=== PATIENT | female | born 1995 | race Caucasian/White ===

== ENCOUNTER 2024-10-01 00:26 | Emergency (ER) | payer SELFPAY ==
[2024-10-01 00:41] VITALS: BP 127/84; PULSE 69; TEMP 36.6; O2SAT 100; BMI 24.8
--- NOTE | 2024-10-01 01:13 | ED.DENTAL1 ---
HPI - Dental/Oral General Chief complaint: Dental/Oral Stated complaint: TOOTH PAIN Time Seen by Provider: 10/01/24 01:00 Source: patient Mode of arrival: walk-in Limitations: no limitations History of Present Illness HPI Narrative: This 28-year-old female presents for evaluation of left lower posterior dental pain where she has a decaying tooth. She states that tooth has been bothering her for the past several days. She states she is going to call for a dental appointment on Monday. She goes to the [facility] where they have a dentist. She is not having any difficulty breathing or swallowing. She has not had any fever. She has no facial swelling. Related Data Allergies Allergy/AdvReac Type Severity Reaction Status Date / Time Penicillins Allergy Intermediate Hives Verified 10/01/24 00:41 Review of Systems ROS Status of ROS 10 or more systems reviewed and unremarkable except as noted in history and below PFSH PFSH Social History Little interest or pleasure in doing things: not at all Feeling down, depressed, or hopeless: not at all Exam Narrative Exam Narrative: Vital signs and Nursing Notes reviewed: Patient is afebrile with a normal pulse, normal blood pressure, she is not hypoxic with pulse ox of 100% on room air General: Awake, alert, oriented, no acute distress, lying comfortably on the stretcher HEENT: Normocephalic atraumatic, mucous membranes are moist and pink, eyes are clear, normal conjunctiva, vision is grossly intact, posterior pharynx is normal in appearance. There is severe dental decay in tooth #17, tooth #16 is missing, there is also a large open cavity in tooth #15. There is no sign of any necrotizing gingivitis. There is no pooling of secretions. There is no swelling of the tongue, uvula or pharyngeal soft tissues. Patient's gingiva does not appear to be inflamed. There is no periapical abscess. There is no adjacent swelling or tenderness in the patient's mandible. Chest: Lungs are clear to auscultation with good air entry, there is no wheezing rhonchi or rales appreciated no accessory muscle use, patient is speaking in complete sentences-no chest wall tenderness to palpation CVS: Regular rate and rhythm S1-S2, no murmurs rubs or gallops, pulses are brisk and equal bilaterallylly Skin: Normal in appearance without rash,pallor, petechiae or purpura Neuro: No focal deficits Constitutional Vital Signs, click to edit/add: Last Vital Signs Temp 98 F 10/01/24 00:41 Pulse 69 10/01/24 00:41 Resp 18 10/01/24 00:41 BP 127/84 10/01/24 00:41 Pulse Ox 100 10/01/24 00:41 O2 Del Method Room Air 10/01/24 00:41 Course Vital Signs Vital signs: Vital Signs Temperature 98 F 10/01/24 00:41 Pulse Rate 69 10/01/24 00:41 Respiratory Rate 18 10/01/24 00:41 Blood Pressure 127/84 10/01/24 00:41 Pulse Oximetry 100 10/01/24 00:41 Oxygen Delivery Method Room Air 10/01/24 00:41 Temperature 98 F 10/01/24 00:41 Pulse Rate 69 10/01/24 00:41 Respiratory Rate 18 10/01/24 00:41 Blood Pressure 127/84 10/01/24 00:41 Pulse Oximetry 100 10/01/24 00:41 Oxygen Delivery Method Room Air 10/01/24 00:41 MDM - Dental/Oral MDM Narrative Medical decision making narrative: This 28-year-old female with a history of dental disease who sees the [facility] in [place] presents for evaluation of pain in tooth #17 where she has a severely decayed tooth. Tooth #16 is missing and there is also a cavity in tooth #15. There is no sign of any necrotizing gingivitis. She has not had a fever. There is no severe gingival inflammation or adjacent abscess in the gum or mandible. She is allergic to penicillin was given a dose of clindamycin in the emergency department as well as dental analgesia. She will be discharged home with a prescription for ibuprofen and clindamycin. She was encouraged to call the dentist tomorrow to get on the list for an appointment. Discharge Plan Discharge Chief Complaint: Dental/Oral Clinical Impression: Dental caries, Toothache Patient Disposition: Home, Self-Care Time of Disposition Decision: 01:16 Condition: Good Print Language: Mongolian Instructions: Toothache (ED) Referrals: Physician,Non-Staff, MD [Primary Care Provider] - 1 week Discharge Date/Time: 10/01/24 02:07
[2024-10-01] MEDS: BENZOCAINE 30 ML, lidocaine HCL 15 ML MM (01:23)
[2024-10-01] MEDS: CLINDAMYCIN HCL 150 MG CAPSULE 300 MG PO (01:24)
[2024-10-01] MEDS: IBUPROFEN 600 MG TABLET PO (01:24)
[2024-10-01] MEDS: HYDROCODONE/ACET 5-325 MG TABLET 2 TAB PO (01:39)
== END 2024-10-01 02:07 | disposition home or self-care (01) ==
PROVIDERS: Emergency Provider Emergency Medicine
DX: K02.9 Dental caries, unspecified (principal); K08.89 Other specified disorders of teeth and supporting structures
CPT/HCPCS: 99283